=== PATIENT | male | born 1965 ===

== ENCOUNTER 2020-12-26 00:59 | Emergency (ER) | payer BC ==
--- NOTE | 2020-12-26 02:47 | ER ---
Nurse's Notes [facility] Name: Chirag Pereira Age: 55 yrs Sex: Male : 1965 Arrival Date: 12/26/2020 Time: 01:05 Bed Waiting Private MD: Diagnosis: ED Course: 12/26 01:05 Patient arrived in ED. bp1 02:46 Patient's name was called from ER lobby. No response. Unable to locate patient. Will bb disposition as left without being seen by a provider. Administered Medications: No medications were administered Outcome: 02:47 Patient left the ED. bb Signatures: Patsy aMyes RN RN bb Rossy Lazo bp1
== END 2020-12-26 02:47 | disposition left against medical advice (07) ==
LOC: ER 00:59
DX: Z02.9 Encounter for administrative examinations, unspecified (principal)